=== PATIENT | female | born 1935 ===

== ENCOUNTER 2024-05-05 11:48 | Outpatient (AMB) | payer MEDICARE, SELFPAY ==
--- NOTE | 2024-05-05 11:47 | A.OFFVIS_ITS ---
Vital Signs 05/05/24 11:51 Height 5 ft 4 in Weight 144 lb BMI 24.7 BP 179/78 H Blood Pressure Location Rt brachial Position Sitting Pulse 66 Pulse Source Pulse Oximeter Pulse Oximetry (%) 97 Oxygen Delivery Method Room Air Intake Visit Reasons: BACK PAIN/SPINAL STENOSIS Intake Note: Pain today 08/03 Assistant Manager Pt Required: No Accompanied by: Son Allergies Sulfa (Sulfonamide Antibiotics) Allergy (Unknown, Verified 05/05/24 11:51) Unknown HPI HPI BACK PAIN/SPINAL STENOSIS: Details: Patient is a pleasant 88-year-old female with prior history of chronic back pain, h/o basal cell carcinoma in leg, MEGGAN lung cancer s/p resection 08/2015, osteopenia, peripheral vascular disease of lower extremities, spinal stenosis with neurogenic claudication, aortic valve replacement and pericardiectomy, presents today for initial evaluation of worsening low back pain with left sided radiculopathy. Denies any past or recent trauma, injury, or falls. Patient was previously seen at [facility] and received injections in the past with minimal relief. She endorses radiation of her low-back pain to the bilateral lower extremities especially with ambulation. Her pain is only present when she walks or stands, and she often needs to lean forward while walking. Patient has to lean on a shopping cart at the grocery store. She can only tolerate 4-5 min of standing and 3-5 min of walking before she needs to rest. She has stopped driving 3 weeks ago due to significant pain. Patient endorses numbness and tingling in her feet and toes, worse in her left side. Patient was seen by Neurosurgery, Dr. Anton last year and was not interested in any neurosurgical intervention as she has been through major heart and lung surgery. At this time, she also wants to avoid back surgery. Pain affects her daily activities and functioning, mobility, sleep, and social interactions. She lives at home with her son and his family. Patient reports bilateral lower extremity weakness with walking or standing due to pain. Denies any fever, weight loss, abdominal or groin pain, footdrop, bladder or bowel dysfunction or saddle anesthesia. Location: Lower back radiates down bilateral legs, left leg is worse Duration: Chronic pain for many years Characteristics of symptom or complaint: Aching, radiating, numbness, tingling, sharp, burning, shooting, tiring Aggravating or associated factors: Standing, walking, changing positions Relieving factors: Sitting, opioids, leaning forward, lean on a shopping cart, heating pad Treatment: PT, injections, stationary bike, opioids, gabapentin, NSAID, prednisone PFSH Medical History (Updated 05/05/24 @ 21:22 by KRISS Montilla) Aortic stenosis Atherosclerosis of aorta Hyperlipidemia GERD (gastroesophageal reflux disease) Basal cell carcinoma of skin Lung cancer Back pain Hypertension Migraine Peripheral vascular disease of lower extremity Premature ventricular contraction Spinal stenosis Surgical History (Updated 05/05/24 @ 12:06 by Katherine Miramontes) H/O breast surgery Hx of appendectomy H/O pneumonectomy Review of Systems Const All systems reviewed & are unremarkable except as noted in HPI and below Physical Exam Vital Signs: Last Vital Signs Pulse 66 05/05/24 11:51 BP 179/78 H 05/05/24 11:51 Pulse Ox 97 05/05/24 11:51 Oxygen Delivery Method Room Air 05/05/24 11:51 BMI result Body Mass Index 24.7 General: Appears afebrile. Alert and oriented. Mood and affect appropriate. Follows and participates in conversation appropriately. Respiratory effort is unlabored. No cough. Able to transition from sit to stand unassisted. Ambulates with antalgic gait. Leaning on family with walking. General: Yes no CVA tenderness Back/Spine/Pelvis Other: Limited lumbar ROM due to pain. Lumbar extension and bending reproduce moderate- severe pain. Leaning forward partially alleviates symptoms. Demonstrates 5/5 right and 4/5 left strength of quadriceps bilaterally as well as flexion/ dorsiflexion of bilateral feet against resistance. 2+ pedal pulses bilaterally. Seated straight leg rise with dorsiflexion positive bilaterally. Diminished patellar and achilles reflexes bilaterally. Facet loading test positive bilaterally. Mild TTP to bilateral sacroiliac joint areas. No groin pain with I/E hip rotations. Limited back exam due to significant pain exacerbation. Back: no CVA tenderness Cervical Spine: loss of normal cervical lordosis, cervical muscular tenderness and No Cervical spine tenderness Thoracic/Lumbar Spine: thoracic and lumbar spine normal to inspection, Thoracic/lumbar spine scar(s), Lasegue's sign positive bilateral and localized, pain with thoraco-lumbar ROM, paraspinal muscle tenderness, thoraco-lumbar ROM limited, Thoracic/lumbar scoliosis, No thoracic spinal tenderness and lumbar spinal tenderness (L3-S1) Pelvis: buttock tenderness on the left Sacroiliac joints: bilaterally tender to palpation Results Reviewed Results Reviewed: MR SPINE LUMBAR without CONTRAST 03/30/24 at [facility] INDICATION: Low back pain. Spinal stenosis. TECHNIQUE: Unenhanced multiplanar, multisequence MR imaging of the lumbar spine. COMPARISON: MR lumbar 04/24/2023, 11/14/2021. FINDINGS: There is a mild dextroscoliotic curvature. Approximate 3 mm degenerative retrolisthesis of L2 on L3 and approximate 4 mm degenerative retrolisthesis of L3 on L4. There is loss of intervertebral disc space height throughout with marginal osteophyte formation and facet arthrosis. There is partial sacralization of L5. No acute paraspinal abnormality identified. Conus and cauda equina of normal appearance. The conus tip T12-L1. Examination through the L1-L2 intervertebral level revealing mild facet arthrosis and prominence of ligamentum flavum. Posterior disc osteophyte. Mild bilateral lateral recess encroachment. No significant central stenosis. No significant foraminal narrowing. Examination through the L2-L3 intervertebral level revealing facet arthrosis. Prominence of ligamentum flavum. Posterior disc osteophyte. Approximate 3 mm degenerative retrolisthesis. Mild central stenosis. Bilateral lateral recess encroachment. Mild LEFT foraminal narrowing. No significant RIGHT foraminal narrowing. Examination through the L3-L4 intervertebral level revealing facet arthrosis. Prominence of ligamentum flavum. Posterior disc osteophyte with a rightward predominance. Moderate central stenosis. Bilateral lateral recess encroachment. Moderate to severe RIGHT foraminal narrowing. Moderate LEFT foraminal narrowing. Examination through the L4-L5 intervertebral level revealing facet arthrosis. Prominence of ligamentum flavum. Approximate 10 mm synovial cyst associated with the medial aspect of the LEFT L4-L5 facet. Posterior disc osteophyte. Severe central stenosis. Bilateral lateral recess encroachment. Moderate to severe bilateral foraminal narrowing. Examination through the L5-S1 intervertebral level revealing facet arthrosis. No significant central stenosis. Mild to moderate bilateral foraminal narrowing. IMPRESSION: Mild lumbar dextroscoliotic curvature. Spondylotic changes and facet arthrosis. Mild degenerative retrolisthesis of L2 on L3 and L3 on L4. No findings of fracture or traumatic listhesis. No suggestion of an acute disc protrusion. L2-L3 Mild central stenosis. Bilateral lateral recess encroachment. Mild LEFT foraminal narrowing. This level grossly stable. L3-L4 intervertebral level revealing facet arthrosis. Prominence of ligamentum flavum. Posterior disc osteophyte with a rightward predominance improved slightly compared to 04/24/23. Moderate central stenosis. Bilateral lateral recess encroachment. Moderate to severe RIGHT foraminal narrowing. Moderate LEFT foraminal narrowing. L4-L5 intervertebral level revealing facet arthrosis. Prominence of ligamentum flavum. Approximate 10 mm synovial cyst associated with the medial aspect of the LEFT L4-L5 facet increased compared to 04/24/23. Posterior disc osteophyte. Severe central stenosis increased compared to 04/24/23. Bilateral lateral recess encroachment. Moderate to severe bilateral foraminal narrowing the degree of which is grossly stable. L5-S1 intervertebral level revealing facet arthrosis. No significant central stenosis. Mild to moderate bilateral foraminal narrowing. This level grossly stable. Assessment & Plan Assessment & Plan (1) Spinal stenosis, lumbar region with neurogenic claudication: Code(s): M48.062 - Spinal stenosis, lumbar region with neurogenic claudication Category: Medical (2) Lumbar degenerative disc disease: Code(s): M51.36 - Other intervertebral disc degeneration, lumbar region Category: Medical (3) Lumbosacral spondylosis: Code(s): M47.817 - Spondylosis without myelopathy or radiculopathy, lumbosacral region Category: Medical (4) Chronic low back pain: Code(s): M54.50 - Low back pain, unspecified; G89.29 - Other chronic pain Category: Medical (5) Synovial cyst of lumbar facet joint: Code(s): M71.38 - Other bursal cyst, other site Category: Medical Plan Patient experiences moderate-severe spinal stenosis-related pain while ambulating. We will proceed with Caudal SANDY with catheter and potential left L4- L5 Synovial cyst aspiration with local and fluoroscopy as initial steps to a ddress?her radicular and spinal-stenosis with neurogenic claudication related symptoms. Subsequently, we will plan for minimally invasive lumbar decompression at L3-L4 and L4-L5 under MAC. Informational brochures provided to patient and family. We also discussed neurosurgical re-evaluation. Patient wants to avoid back surgery. Short script provided morphine IR 15 mg #14 tabs for 7 days for moderate-severe pain only while patient is awaiting for procedure. Narcan sent as well. Side effects, precautions and Narcan use have been discussed with patient and her family in greater detail. Patient has previously tried gabapentin, tramadol, oxycodone, Tylenol #3, Butrans patch, prednisone, NSAIDs without significant pain relief. Patient is aware to call if pain worsens or if she develops any red flag symptoms to seek emergency care. Patient denies any cauda equina syndrome symptoms at this time. All questions and concerns have been answered and patient agreed with the treatment plan. Follow-up after injections and sooner as needed. Justification for interventional therapy: ? Patient with average pain > 6/10 ? Patient has exhausted conservative therapy ? Patient experiences moderate-severe spinal stenosis-related pain while ambulating. The risks, consequences, alternatives, and benefits of various treatment options were discussed with the patient in great detail, including conservative management, injections and procedures. Medications: New morphine Partial Fill upon patient request. 15 mg PO BID 7 days PRN 14 tabs 0RF pain M48.062 - Spinal stenosis, lumbar region with neurogenic claudication, M51.36 - Other intervertebral disc degeneration, lumbar region naloxone 4 mg/actuation (Narcan) spray 1 dose into ONE nostril; alternate nostrils w each dose until help arrives 4 mg intranasal Q2M PRN 2 ea 0RF opioid overdose Coding Level of Care Code New Pt Level 4 (41322) Diagnoses Spinal stenosis, lumbar region with neurogenic claudication M48.062 Lumbar degenerative disc disease M51.36 Lumbosacral spondylosis M47.817 Chronic low back pain M54.50; G89.29 Synovial cyst of lumbar facet joint M71.38
[2024-05-05 11:51] VITALS: BP 179/78; PULSE 66; O2SAT 97; BMI 24.7
== END 2024-05-05 12:35 | disposition home or self-care (01) ==
PROVIDERS: PCP Internal Medicine; Referring Provider Internal Medicine; Visit Provider Nurse Practitioner Family
DX: M48.062 Spinal stenosis, lumbar region with neurogenic claudication (principal); M51.36 Other intervertebral disc degeneration, lumbar region; M47.817 Spondylosis without myelopathy or radiculopathy, lumbosacral region; M54.50 Low back pain, unspecified; G89.29 Other chronic pain; M71.38 Other bursal cyst, other site
CPT/HCPCS: 99204

== ENCOUNTER → 2024-05-05 11:48 | Outpatient (BNVA) | payer MEDICARE, SELFPAY | PROVIDERS: PCP Internal Medicine; Referring Provider Internal Medicine; Visit Provider Nurse Practitioner Family | DX: M48.062 Spinal stenosis, lumbar region with neurogenic claudication (principal); M51.36 Other intervertebral disc degeneration, lumbar region; M47.817 Spondylosis without myelopathy or radiculopathy, lumbosacral region; M54.50 Low back pain, unspecified; M71.38 Other bursal cyst, other site; G89.29 Other chronic pain | CPT/HCPCS: 99202 ==

== ENCOUNTER 2024-05-25 06:26 | Outpatient (REF) | payer MEDICARE, SELFPAY | END 2024-05-25 06:27 | disposition home or self-care (01) | LOC: CF 06:26 | PROVIDERS: Visit Provider Internal Medicine | DX: M47.817 Spondylosis without myelopathy or radiculopathy, lumbosacral region (principal); M48.062 Spinal stenosis, lumbar region with neurogenic claudication; I10 Essential (primary) hypertension; Z53.09 Procedure and treatment not carried out because of other contraindication | CPT/HCPCS: 99212; J3301; Q9967 ==

== ENCOUNTER 2024-05-25 12:48 | Outpatient (AMB) | payer MEDICARE, SELFPAY ==
[2024-05-25 12:55] VITALS: BP 179/63; PULSE 63; RESP 16; O2SAT 98
--- NOTE | 2024-05-25 13:27 | MHC.OFFVIS ---
Vital Signs 05/25/24 12:55 BP 179/63 H Blood Pressure Location Lt brachial Position Sitting Respiration 16 Pulse 63 Pulse Source Pulse Oximeter Pulse Oximetry (%) 98 Oxygen Delivery Method Room Air Comment Pre-op Intake Visit Reasons: Caudal SANDY/ possible L L4-L5 synovial cyst asp Allergies Sulfa (Sulfonamide Antibiotics) Allergy (Unknown, Verified 05/05/24 11:51) Unknown HPI HPI Caudal SANDY/ possible L L4-L5 synovial cyst asp: Details: Patient presented for scheduled caudal epidural steroid injection. Initial blood pressure measurement showed a systolic blood pressure of 190. The blood pressure was checked again a few minutes later, and revealed a reading of 180/65. Blood pressure at her last clinic visit was similar. She did not appear anxious. The patient reports that her blood pressure at home is usually in the 140s to 150s range. She denies having and uncontrolled blood pressure history. She took her olmesartan this morning. Past history is notable for aortic stenosis status post AVR. [facility] Medical History (Updated 05/25/24 @ 13:52 by Carlos Baker MD) Aortic stenosis Atherosclerosis of aorta Hyperlipidemia GERD (gastroesophageal reflux disease) Basal cell carcinoma of skin Lung cancer Back pain Hypertension Migraine Peripheral vascular disease of lower extremity Premature ventricular contraction Spinal stenosis Surgical History (Updated 05/05/24 @ 12:06 by Katherine Miramontes) H/O breast surgery Hx of appendectomy H/O pneumonectomy Physical Exam Vital Signs: Last Vital Signs Pulse 63 05/25/24 12:55 Resp 16 05/25/24 12:55 BP 179/63 H 05/25/24 12:55 Pulse Ox 98 05/25/24 12:55 Oxygen Delivery Method Room Air 05/25/24 12:55 On exam today: Appears afebrile. Alert and oriented. Mood and affect appropriate. Follows and participates in conversation appropriately. Respiratory effort is unlabored. Able to transition from sit to stand unassisted. Ambulates with bilaterally normal heel strike and toe off. Able to stand and walk on toes and heels. Assessment & Plan Assessment & Plan (1) Spinal stenosis, lumbar region with neurogenic claudication: Code(s): M48.062 - Spinal stenosis, lumbar region with neurogenic claudication Category: Medical (2) Hypertension: Code(s): I10 - Essential (primary) hypertension Category: Medical Plan Patient presented for a scheduled epidural steroid injection but her blood pressure was noted to be higher than usual. I counseled the patient to reach out to her primary care provider to discuss a blood pressure management program to ensure appropriate hemodynamics following a future steroid injection. I offered to proceed with the injection if she was comfortable monitoring her blood pressure at home and increasing her blood pressure medication as indicated on her own but she felt more comfortable deferring the procedure and discussing it with Dr. Dominguez. She will reach out to us once a periprocedural BP management plan has been put in place and we will reschedule her for the caudal epidural steroid injection. Patient is in agreement. Orders: Orders [place] guidance in treatment room Today M47.817 - Spondylosis without myelopathy or radiculopathy, lumbosacral region, M71.38 - Other bursal cyst, other site Coding Level of Care Code Est Pt Level 3 (51385) Diagnoses Spinal stenosis, lumbar region with neurogenic claudication M48.062 Hypertension I10
== END 2024-05-25 13:36 | disposition home or self-care (01) ==
LOC: HO.PMCPRC 12:48
PROVIDERS: PCP Internal Medicine; Visit Provider Internal Medicine
DX: M48.062 Spinal stenosis, lumbar region with neurogenic claudication (principal); I10 Essential (primary) hypertension
CPT/HCPCS: 99213

== ENCOUNTER 2024-07-13 06:12 | Outpatient (REF) | payer MEDICARE, SELFPAY | END 2024-07-13 06:13 | disposition home or self-care (01) | LOC: CF 06:12 | PROVIDERS: Visit Provider Internal Medicine | DX: M48.062 Spinal stenosis, lumbar region with neurogenic claudication (principal); M54.16 Radiculopathy, lumbar region | CPT/HCPCS: 62323; J2795; J3301; Q9967 ==

== ENCOUNTER 2024-07-13 10:26 | Outpatient (AMB) | payer MEDICARE, SELFPAY ==
[2024-07-13 11:46] VITALS: BP 173/61; PULSE 65; O2SAT 98
--- NOTE | 2024-07-13 11:46 | MHC.OFFVIS ---
Vital Signs 07/13/24 11:46 07/13/24 11:47 Height 5 ft 4 in 5 ft 4 in BP 173/61 H 191/102 H Blood Pressure Location Lt brachial Rt brachial Position Sitting Sitting Pulse 65 61 Pulse Source Pulse Oximeter Pulse Oximeter Pulse Oximetry (%) 98 100 Oxygen Delivery Method Room Air Room Air Comment pre-op post-op Intake Visit Reasons: Caudal SANDY/ possible L4-L5 synovial cyst asp Allergies Sulfa (Sulfonamide Antibiotics) Allergy (Unknown, Verified 05/05/24 11:51) Unknown HPI HPI Caudal SANDY/ possible L4-L5 synovial cyst asp: Details: Patient presents for scheduled procedure. Denies any recent cough, cold, infection, fever or other significant changes in medical history since last office visit. [facility] Medical History (Updated 07/13/24 @ 13:00 by Carlos Baker MD) Aortic stenosis Atherosclerosis of aorta Hyperlipidemia GERD (gastroesophageal reflux disease) Basal cell carcinoma of skin Lung cancer Back pain Hypertension Migraine Peripheral vascular disease of lower extremity Premature ventricular contraction Spinal stenosis Surgical History (Updated 05/05/24 @ 12:06 by Katherine Miramontes) H/O breast surgery Hx of appendectomy H/O pneumonectomy Physical Exam Vital Signs: Last Vital Signs Pulse 61 07/13/24 11:47 BP 191/102 H 07/13/24 11:47 Pulse Ox 100 07/13/24 11:47 Oxygen Delivery Method Room Air 07/13/24 11:47 Office Procedures Joint Injection/Aspiration Joint Injection/Aspiration Details: Caudal SANDY with catheter After obtaining written consent, pre-procedure blood pressure and pulse were measured. Standard monitors were applied. The patient was placed in the prone position. The lumbosacral area was widely prepped with chloraprep and draped in sterile fashion. The skin overlying the target was anesthetized with 0.5% lidocaine. A 17 G needle was used to access the caudal epidural space using anatomic landmarks and x-ray guidance. We then threaded a catheter up to the L5/S1 level and injected contrast 1cc omnipaque 180 for verification of epidural spread. Following negative aspiration of heme or CSF, a mixture of 5 ml 0.5% lidocaine with 80 mg triamcinolone was injected with minimal pressure into the epidural space. The needle was removed, skin cleansed and a sterile bandage was applied. The patient tolerated the procedure well and no complications were encountered. Following the procedure the patient's vital signs were stable. The patient was discharged home in good condition with post-procedural instructions. Time Out: Immediately prior to the procedure, the following was verbally confirmed that there is a signed consent form and that the correct patient, planned procedure, site and side are consistent with documentation and that necessary equipment and/or blood products are available prior to the start of the case. Complications: none EBL: <5 cc Coding 10933 - Caudal/Lumbar Epidural/Interlaminar with fluoroscopy Procedure code (CPT) selection complete Assessment & Plan Assessment & Plan (1) Lumbar radiculopathy: Code(s): M54.16 - Radiculopathy, lumbar region Category: Medical Plan Patient is status post caudal epidural steroid injection with catheter. Patient tolerated procedure well and was discharged home in stable condition with discharge instructions. All questions were answered. We will follow-up via telephone or in clinic to assess response to therapy. A follow-up appointment was made during today's visit. Orders: Orders FL guidance in treatment room Today M48.062 - Spinal stenosis, lumbar region with neurogenic claudication Coding Level of Care Code Procedure Only Diagnoses Lumbar radiculopathy M54.16 CPT Codes Coding - Joint 11: 22634 - Caudal/Lumbar Epidural/Interlaminar with fluoroscopy ([id number])
[2024-07-13 11:47] VITALS: BP 191/102; PULSE 61; O2SAT 100
== END 2024-07-13 11:41 | disposition home or self-care (01) ==
LOC: HO.PMCPRC 10:26
PROVIDERS: PCP Internal Medicine; Visit Provider Internal Medicine
DX: M54.16 Radiculopathy, lumbar region (principal)
CPT/HCPCS: 62323

== ENCOUNTER 2024-08-17 13:22 | Outpatient (AMB) | payer MEDICARE, SELFPAY ==
[2024-08-17 13:23] VITALS: BMI 23.7
--- NOTE | 2024-08-17 13:23 | A.OFFVIS_ITS ---
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 Baker. Patient reports ongoing 75-80% pain relief since injection with significant improvement in her daily activities and functioning, mobility, sleep and social interactions. She reports intermittent residual left leg pain which has been very minimal comparing prior to injection. Patient occasionally takes Tylenol for chronic arthritic back pain. She reports post injection she is able to walk around and go out with her family and friends more. She is very content with procedure outcome. Denies any recent cough, cold, infection, fever or other significant changes in medical history since last office visit. Past Procedures: 08/10/24: Caudal SANDY with hpyelevb-18-10% ongoing pain relief PRIOR: Patient is a pleasant 88-year-old female with prior history of chronic back pain, h/o basal cell carcinoma in leg, MEGGAN lung cancer s/p resection 08/2015, osteopenia, peripheral vascular disease of lower extremities, spinal stenosis with neurogenic claudication, aortic valve replacement and pericardiectomy, presents today for initial evaluation of worsening low back pain with left sided radiculopathy. Denies any past or recent trauma, injury, or falls. Patient was previously seen at [facility] and received injections in the past with minimal relief. She endorses radiation of her low-back pain to the bilateral lower extremities especially with ambulation. Her pain is only present when she walks or stands, and she often needs to lean forward while walking. Patient has to lean on a evelyn pping cart at the grocery store. She can only tolerate 4-5 min of standing and 3-5 min of walking before she needs to rest. She has stopped driving 3 weeks ago due to significant pain. Patient endorses numbness and tingling in her feet and toes, worse in her left side. Patient was seen by Neurosurgery, Dr. Anton last year and was not interested in any neurosurgical intervention as she has been through major heart and lung surgery. At this time, she also wants to avoid back surgery. Pain affects her daily activities and functioning, mobility, sleep, and social interactions. She lives at home with her son and his family. Patient reports bilateral lower extremity weakness with walking or standing due to pain. Denies any fever, weight loss, abdominal or groin pain, footdrop, bladder or bowel dysfunction or saddle anesthesia. Location: Lower back radiates down bilateral legs, left leg is worse Duration: Chronic pain for many years Characteristics of symptom or complaint: Aching, radiating, numbness, tingling, sharp, burning, shooting, tiring Aggravating or associated factors: Standing, walking, changing positions Relieving factors: Sitting, opioids, leaning forward, lean on a shopping cart, heating pad Treatment: PT, injections, stationary bike, opioids, gabapentin, NSAID, prednisone PFSH Medical History Aortic stenosis Atherosclerosis of aorta Hyperlipidemia GERD (gastroesophageal reflux disease) Basal cell carcinoma of skin Lung cancer Back pain Hypertension Migraine Peripheral vascular disease of lower extremity Premature ventricular contraction Spinal stenosis Surgical History H/O breast surgery Hx of appendectomy H/O pneumonectomy Review of Systems Const All systems reviewed & are unremarkable except as noted in HPI and below ENT Reports Normal hearing present Neuro Reports Normal hearing present and Denies confusion Psych Denies confusion Physical Exam Vital Signs: BMI result Body Mass Index 23.7 Const General: cooperative, alert and awake; No confusion Orientation/consciousness: patient oriented x3 and No confusion Resp Effort & Inspection: able to speak in complete sentences, no audible wheezes and no cough Neuro General: patient oriented x3 and No confusion Cranial nerves: Yes Normal hearing present Cognition (Neuro): normal cognition Psych Mental Status: mental status grossly normal Speech and movement: Clear speech present Affect: normal affect Attitude: cooperative Thought process: Normal thought process present Thought content: Normal thought content present and No Depressive thoughts present Insight: Good insight present (Psych) Judgement: Good judgement present (Psych) Telehealth Telehealth Telehealth Platform: Telephone Location of provider rendering services: practice address Location of patient: address on file Patient Identification confirmed using: Name, : Yes Telehealth method: voice only Patient verbally consented to treatment: Yes Patient verbally consented to billing insurance company: Yes Patient informed of any privacy concerns related to visit: Yes Minutes spent on Phone/Video with Pt.: 8 Results Reviewed Results Reviewed: MR SPINE LUMBAR without CONTRAST 03/30/24 at [facility] INDICATION: Low back pain. Spinal stenosis. TECHNIQUE: Unenhanced multiplanar, multisequence MR imaging of the lumbar spine. COMPARISON: MR lumbar 04/24/2023, 11/14/2021. FINDINGS: There is a mild dextroscoliotic curvature. Approximate 3 mm degenerative retrolisthesis of L2 on L3 and approximate 4 mm degenerative retrolisthesis of L3 on L4. There is loss of intervertebral disc space height throughout with marginal osteophyte formation and facet arthrosis. There is partial sacralization of L5. No acute paraspinal abnormality identified. Conus and cauda equina of normal appearance. The conus tip T12-L1. Examination through the L1-L2 intervertebral level revealing mild facet arthrosis and prominence of ligamentum flavum. Posterior disc osteophyte. Mild bilateral lateral recess encroachment. No significant central stenosis. No significant foraminal narrowing. Examination through the L2-L3 intervertebral level revealing facet arthrosis. Prominence of ligamentum flavum. Posterior disc osteophyte. Approximate 3 mm degenerative retrolisthesis. Mild central stenosis. Bilateral lateral recess encroachment. Mild LEFT foraminal narrowing. No significant RIGHT foraminal narrowing. Examination through the L3-L4 intervertebral level revealing facet arthrosis. Prominence of ligamentum flavum. Posterior disc osteophyte with a rightward predominance. Moderate central stenosis. Bilateral lateral recess encroachment. Moderate to severe RIGHT foraminal narrowing. Moderate LEFT foraminal narrowing. Examination through the L4-L5 intervertebral level revealing facet arthrosis. Prominence of ligamentum flavum. Approximate 10 mm synovial cyst associated with the medial aspect of the LEFT L4-L5 facet. Posterior disc osteophyte. Severe central stenosis. Bilateral lateral recess encroachment. Moderate to severe bilateral foraminal narrowing. Examination through the L5-S1 intervertebral level revealing facet arthrosis. No significant central stenosis. Mild to moderate bilateral foraminal narrowing. IMPRESSION: Mild lumbar dextroscoliotic curvature. Spondylotic changes and facet arthrosis. Mild degenerative retrolisthesis of L2 on L3 and L3 on L4. No findings of fracture or traumatic listhesis. No suggestion of an acute disc protrusion. L2-L3 Mild central stenosis. Bilateral lateral recess encroachment. Mild LEFT foraminal narrowing. This level grossly stable. L3-L4 intervertebral level revealing facet arthrosis. Prominence of ligamentum flavum. Posterior disc osteophyte with a rightward predominance improved slightly compared to 04/24/23. Moderate central stenosis. Bilateral lateral recess encroachment. Moderate to severe RIGHT foraminal narrowing. Moderate LEFT foraminal narrowing. L4-L5 intervertebral level revealing facet arthrosis. Prominence of ligamentum flavum. Approximate 10 mm synovial cyst associated with the medial aspect of the LEFT L4-L5 facet increased compared to 04/24/23. Posterior disc osteophyte. Severe central stenosis increased compared to 04/24/23. Bilateral lateral recess encroachment. Moderate to severe bilateral foraminal narrowing the degree of which is grossly stable. L5-S1 intervertebral level revealing facet arthrosis. No significant central stenosis. Mild to moderate bilateral foraminal narrowing. This level grossly stable. Assessment & Plan Assessment & Plan (1) Lumbar radiculopathy: Code(s): M54.16 - Radiculopathy, lumbar region Category: Medical (2) Spinal stenosis, lumbar region with neurogenic claudication: Code(s): M48.062 - Spinal stenosis, lumbar region with neurogenic claudication Category: Medical (3) Lumbar degenerative disc disease: Code(s): M51.36 - Other intervertebral disc degeneration, lumbar region Category: Medical (4) Chronic low back pain: Code(s): M54.50 - Low back pain, unspecified; G89.29 - Other chronic pain Category: Medical Plan Patient is one month status post caudal epidural steroid injection with catheter with good results and significant improvement in her ADLs, mobility, sleep and quality of life. Patient will continue to monitor her symptoms and notify our office when her back and leg pain returns to baseline. Patient is aware that she can not receive another injection in this area for another two months. All questions and concerns have been answered and patient agreed with the plan. Follow up as needed. I hereby testify that I spent 8 minutes in conversation with this patient as well as with planning and coordinating care for this patient and organizing this note. Coding Level of Care Code Tele Est Pt Level 3 (75971) Complex EM visit Add On G2211 Diagnoses Lumbar radiculopathy M54.16 Spinal stenosis, lumbar region with neurogenic claudication M48.062 Lumbar degenerative disc disease M51.36 Chronic low back pain M54.50; G89.29
== END 2024-08-17 13:28 | disposition home or self-care (01) ==
LOC: HO.PMC 13:22
PROVIDERS: PCP Internal Medicine; Visit Provider Nurse Practitioner Family
DX: M54.16 Radiculopathy, lumbar region (principal); M48.062 Spinal stenosis, lumbar region with neurogenic claudication; M51.369 Other intervertebral disc degeneration, lumbar region without mention of lumbar back pain or lower extremity pain; M54.50 Low back pain, unspecified; G89.29 Other chronic pain
CPT/HCPCS: 99441